=== PATIENT | female | born 1960 | race Caucasian/White ===

== ENCOUNTER → 2016-02-24 | Outpatient (CLI) | payer BC ==
--- NOTE | 2016-02-25 08:49 | MM ---
Reason for exam: screening (asymptomatic). Last mammogram was performed 1 year and 4 months ago. History: Patient is postmenopausal. Family history of breast cancer in maternal aunt. Physical Findings: A clinical breast exam by your physician is recommended on an annual basis and results should be correlated with mammographic findings. MG Screening Mammo w CAD Bilateral CC and MLO view(s) were taken. Prior study comparison: November 07, 2014, bilateral MG screening mammo w CAD. September 24, 2013, bilateral MG screening mammo w CAD. There are scattered fibroglandular densities. Finding: There is a 6 mm high density mass in the outer quadrant of the right breast. ASSESSMENT: Incomplete: need additional imaging evaluation, BI-RAD 0 RECOMMENDATION: Special view mammogram of the right breast. If lesion persists on supplemental views, image directed ultrasound is recommended. [facility] will attempt to contact patient to return for supplemental views and ultrasound if indicated.
== END ==
LOC: RADMAMWWP 07:20
PROVIDERS: ATTEND Obstetrics & Gynecology
DX: Z12.31 Encounter for screening mammogram for malignant neoplasm of breast (principal); R92.8 Other abnormal and inconclusive findings on diagnostic imaging of breast; E78.4 Other hyperlipidemia; E03.9 Hypothyroidism, unspecified
CPT/HCPCS: 84439; 80061; 84443; G0202

== ENCOUNTER → 2016-03-01 | Outpatient (CLI) | payer BC ==
--- NOTE | 2016-03-02 08:11 | MM ---
Reason for exam: additional evaluation requested from abnormal screening. Last mammogram was performed less than 1 month ago. History: Patient is postmenopausal. Family history of breast cancer in maternal aunt. Physical Findings: Nurse did not find any significant physical abnormalities on exam. MG Work Up Mamm w CAD RT LM, spot compression CC, and spot compression LM view(s) were taken of the right breast. Prior study comparison: February 24, 2016, bilateral MG screening mammo w CAD. November 07, 2014, bilateral MG screening mammo w CAD. Ill defined density upper outer quadrant right breast, 8.5cm from nipple. Ultrasound is recommended. These results were verbally communicated with the patient and result sheet given to the patient on 03/01/16. ASSESSMENT: Incomplete: need additional imaging evaluation, BI-RAD 0 RECOMMENDATION: Ultrasound of the right breast.
--- NOTE | 2016-03-02 08:13 | USB ---
Reason for exam: additional evaluation requested from abnormal screening. History: Patient is postmenopausal. Family history of breast cancer in maternal aunt. US Breast Workup Limited RT Right breast ultrasound demonstrates a 0.20 x 0.18 x 0.35cm lesion too small to characterize at 11 o'clock. Does not correlate with mammographic finding. Breast MRI recommended. These results were verbally communicated with the patient and result sheet given to the patient on 03/01/16. ASSESSMENT: Incomplete: need additional imaging evaluation, BI-RAD 0 RECOMMENDATION: Breast MRI of the right breast.
== END | disposition home or self-care (01) ==
LOC: RADMAMWWP 13:29
PROVIDERS: ATTEND Obstetrics & Gynecology
DX: R92.2 Inconclusive mammogram (principal)
CPT/HCPCS: 76642; G0206

== ENCOUNTER → 2016-03-24 | Day surgery (SDC) | payer BC ==
[~2016-03-24] MED LIST: ALPRAZolam 0.25 MG TAB ONE; BACITRACIN OINT 1 EACH PACKET TOPICAL ONE; LIDOCAINE 1% INJ 10MG/ML (20 ML MDV) ONE; LIDOCAINE 1%-EPI 1:100,000 20 ML VIAL ONE; SODIUM BICARB 4% 5 ML VIAL (0.48 MEQ/ML) ONE
--- NOTE | 2016-03-24 15:43 | MM ---
EXAMINATION TYPE: MG stereo VAD BX RT DATE OF EXAM: 03/24/2016 3:28 PM COMPARISON: Prior mammogram February 24, 2016 and older studies CLINICAL HISTORY: Abnormal mammogram TECHNIQUE: Stereotactic guided core biopsy of right breast with clip placement and follow-up two-view mammogram. FINDINGS: The procedure of stereotactic guided core biopsy was explained to the patient. Benefits, alternatives, and risks were discussed. An informed consent was then obtained. The shortness pathway for biopsy was attempted. Shortness pathway was outer approach. It was difficult to localize with this technique. A cranial approach was then performed. I performed the localization. Overlying skin is cleansed with Betadine. Lidocaine with bicarbonate is used as anesthetic into the skin. Lidocaine with epinephrine is used as anesthetic into the deeper tissue. A vacuum assisted biopsy gun was used to obtain multiple core samples. The patient tolerated the procedure well without any immediate complication. The patient was kept in the radiology department for short stay after the procedure and then discharged home in stable condition. Specimen mammogram not performed due to no calcifications in targeted area. Post biopsy mammogram shows the clip to appear in satisfactory position relative to the targeted area of concern on the preprocedure images. IMPRESSION: SUCCESSFUL, UNCOMPLICATED STEREOTACTIC GUIDED CORE BIOPSY OF AREA OF CONCERN IN THE RIGHT BREAST, FULL PATHOLOGY RESULTS TO FOLLOW. Low to intermediate index of suspicion noted at time of procedure. Pathology Results: Benign BREAST, RIGHT, CORE BIOPSY: BENIGN BREAST TISSUE WITH FOCAL FIBROSIS AND PROMINENT ADIPOSE TISSUE. SEE NOTE. Recommendation Follow up mammogram of the right breast in 6 months. BANG
== END ==
LOC: RADMAMWWP 13:17
PROVIDERS: ATTEND Surgery
DX: N60.31 Fibrosclerosis of right breast (principal); R92.8 Other abnormal and inconclusive findings on diagnostic imaging of breast; N64.9 Disorder of breast, unspecified
CPT/HCPCS: 88305; 19081; A4648; J2001

== ENCOUNTER → 2016-09-22 | Outpatient (CLI) | payer BC ==
--- NOTE | 2016-09-22 08:52 | MM ---
Reason for exam: follow-up at short interval from prior study. Last mammogram was performed 7 months ago. History: Patient is postmenopausal. Family history of breast cancer in maternal aunt. Benign MG stereo VAD BX RT of the right breast, March 24, 2016. Took hormonal contraceptives beginning at age 19. Physical Findings: Nurse did not find any significant physical abnormalities on exam. MG 3D Diag Mammo W/Cad RT CC and MLO view(s) were taken of the right breast. Prior study comparison: March 01, 2016, right breast MG work up mamm w CAD RT. There are scattered fibroglandular densities. No significant new findings when compared with previous films. These results were verbally communicated with the patient and result sheet given to the patient on 09/22/16. ASSESSMENT: Benign, BI-RAD 2 RECOMMENDATION: Return to routine screening mammogram schedule for both breasts. Back on schedule for February 2017.
== END | disposition home or self-care (01) ==
LOC: RADMAMWWP 08:07
PROVIDERS: ATTEND Surgery
DX: R92.8 Other abnormal and inconclusive findings on diagnostic imaging of breast (principal)
CPT/HCPCS: G0206; G0279

== ENCOUNTER → 2017-05-01 | Outpatient (CLI) | payer BC ==
[2017-05-01 10:43] LABS: Cholesterol 199 mg/dL (<200); HDL Cholesterol 37 mg/dL (40-60); LDL Cholesterol,Calculated 107 mg/dL (0-99); Triglycerides 275 mg/dL (<150)
--- NOTE | 2017-05-01 13:47 | BD ---
EXAMINATION TYPE: MG DEXA axial skeleton. DATE OF EXAM: 05/01/2017 COMPARISON: 2014 CLINICAL HISTORY: osteopenia. Postmenopausal female. Height: 5'4 3/4 Weight: 187 FRAX RISK QUESTIONS: Alcohol (3 or more units per day): no Family History (Parent hip fracture): no Glucocorticoids (More than 3mos): no (Ex: prednisone, prednisolone, methylprednisolone, dexamethasone, and hydrocortisone). History of Fracture in Adulthood: no Secondary Osteoporosis: 1. Type 1 Diabetes: no 2. Hyperthyroidism: no 3. Menopause before 45: yes 4. Malnutrition: no 5. Chronic liver disease: no Rheumatoid Arthritis: no Current Tobacco Use: no RISK FACTORS HISTORY OF: Family History of Osteoporosis: y Postmenopausal woman: MEDICATIONS: Additional Medications: Additional History: EXAM MEASUREMENTS: Bone mineral densitometry was performed using the [employer] System. Bone mineral density as measured about the Lumbar spine is: ----- L1-L4(G/cm2): 1.097 T Score Values are as follows: ----- L2: -1.3 ----- L3: -0.3 ----- L4: -0.5 ----- L1-L4: -0.7 Bone mineral density has: Decreased -5.7% since study of: 11/07/2014 Bone mineral density about the R hip (g/cm2): 0.896 Bone mineral density about the L hip (g/cm2): 0.904 T Score values are as follows: -----R Neck: -1.0 -----L Neck: -1.0 -----R Total: -0.3 -----L Total: -0.5 Bone mineral density has: Decreased -6.7% since study of: 11/07/2014 IMPRESSION: Normal (Values between +1 and -1 indicate normal bone mass). Bilateral hips approach values for osteo penia. Consider repeating this study in 5 years or sooner if there is some new clinical indication. NOTE: T-SCORE=SD OF THE YOUNG ADULT MEAN.
--- NOTE | 2017-05-03 12:45 | MM ---
Reason for exam: screening (asymptomatic). Last mammogram was performed 7 months ago. History: Patient is postmenopausal. Family history of breast cancer in maternal aunt. Benign MG stereo VAD BX RT of the right breast, March 24, 2016. Took hormonal contraceptives beginning at age 19. Physical Findings: A clinical breast exam by your physician is recommended on an annual basis and results should be correlated with mammographic findings. MG 3D Screening Mammo W/Cad Bilateral CC and MLO view(s) were taken. Prior study comparison: September 22, 2016, right breast MG 3d diag mammo w/cad RT. March 01, 2016, right breast MG work up mamm w CAD RT. There are scattered fibroglandular densities. Previous mammotome biopsy in the right breast. There is no discrete abnormality. ASSESSMENT: Benign, BI-RAD 2 RECOMMENDATION: Routine screening mammogram of both breasts in 1 year.
== END | disposition home or self-care (01) ==
LOC: RADBDWWP 09:43
PROVIDERS: ATTEND Obstetrics & Gynecology
DX: Z12.31 Encounter for screening mammogram for malignant neoplasm of breast (principal); M85.852 Other specified disorders of bone density and structure, left thigh; M85.851 Other specified disorders of bone density and structure, right thigh
CPT/HCPCS: 77063; 77067; 77080; 80061

== ENCOUNTER → 2018-06-14 | Outpatient (CLI) | payer BC ==
[2018-06-14 07:43] LABS: Cholesterol 172 mg/dL (<200); HDL Cholesterol 26 mg/dL (40-60); LDL Cholesterol,Calculated 78 mg/dL (0-99); Triglycerides 340 mg/dL (<150)
--- NOTE | 2018-06-15 12:30 | MM ---
Reason for exam: screening (asymptomatic). Last mammogram was performed 1 year and 1 month ago. History: Patient is postmenopausal. Family history of breast cancer in maternal aunt and breast cancer in maternal cousin. Benign MG stereo VAD BX RT of the right breast, March 24, 2016. Took hormonal contraceptives beginning at age 19. Physical Findings: A clinical breast exam by your physician is recommended on an annual basis and results should be correlated with mammographic findings. MG 3D Screening Mammo W/Cad Bilateral CC and MLO view(s) were taken. Prior study comparison: May 01, 2017, bilateral MG 3d screening mammo w/cad. September 22, 2016, right breast MG 3d diag mammo w/cad RT. The breast tissue is heterogeneously dense. This may lower the sensitivity of mammography. Previous mammotome biopsy in the right breast. No significant changes when compared with prior studies. ASSESSMENT: Benign, BI-RAD 2 RECOMMENDATION: Routine screening mammogram of both breasts in 1 year.
== END ==
LOC: RADMAMWWP 06:34
PROVIDERS: ATTEND Obstetrics & Gynecology
DX: Z12.31 Encounter for screening mammogram for malignant neoplasm of breast (principal); Z13.220 Encounter for screening for lipoid disorders
CPT/HCPCS: 77063; 77067; 80061

== ENCOUNTER 2019-07-17 20:43 | Emergency (ER) | payer OTHER, BC ==
[2019-07-17] MEDS ORDERED: ONDANSETRON 4 MG/2 ML VIAL IVP STA (20:58)
[2019-07-17 20:59] VITALS: BP 151/88; TEMP 97.4
[2019-07-17 21:00] VITALS: PULSE 77; RESP 18
[2019-07-17] MEDS ORDERED: MORPHINE SULFATE 4 MG/ML SYRINGE IVP STA ×2 (21:00→22:25)
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
[2019-07-17 21:36] LABS: ALT 61 U/L (4-34); AST 87 U/L (14-36); African American GFR (CKD) 89 (>60 ml/min/1.73 sqM); Albumin 4.3 g/dL (3.5-5.0); Alcohol <10 mg/dL; Alkaline Phosphatase 139 U/L (38-126); Anion Gap 9 mmol/L; Blood Urea Nitrogen 19 mg/dL (7-17); Calcium 8.9 mg/dL (8.4-10.2); Carbon Dioxide 20 mmol/L (22-30); Chloride 109 mmol/L (98-107); Creatine Kinase 148 U/L (30-135); Glucose 111 mg/dL (74-99); Non-African American GFR(CKD) 77 (>60 ml/min/1.73 sqM); Potassium 4.3 mmol/L (3.5-5.1); Sodium 138 mmol/L (137-145); Total Bilirubin 0.4 mg/dL (0.2-1.3); Total Protein 7.1 g/dL (6.3-8.2)
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
[2019-07-17 21:44] LABS: INR 1.4 (<1.2); Partial Thromboplastin Time 23.5 sec (22.0-30.0); Prothrombin Time 14.2 sec (9.0-12.0)
[2019-07-17 22:02] LABS: Basophils % (A) 0 %; Eosinophils # (A) 0.2 k/uL (0-0.7); Eosinophils % (A) 2 %; HCT 46.9 % (34.0-46.0); HGB 15.1 gm/dL (11.4-16.0); Lymphocytes # (A) 2.2 k/uL (1.0-4.8); Lymphocytes % (A) 23 %; MCH 30.2 pg (25.0-35.0); MCHC 32.3 g/dL (31.0-37.0); MCV 93.4 fL (80.0-100.0); Mean Platelet Volume 8.3; Monocytes # (A) 0.5 k/uL (0-1.0); Monocytes % (A) 5 %; Neutrophils # (A) 6.4 k/uL (1.3-7.7); Neutrophils % (A) 68 %; Platelet Count 202 k/uL (150-450); RBC 5.02 m/uL (3.80-5.40); RDW 13.2 % (11.5-15.5); WBC 9.5 k/uL (3.8-10.6)
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
[2019-07-17 23:12] LABS: Appearance,Urine Clear (Clear); Bilirubin,Urine Negative (Negative); Blood,Urine Moderate (Negative); Color,Urine Yellow; Glucose,Urine (UA) Negative (Negative); Ketones,Urine Trace (Negative); Leukocyte Esterase,Urine Negative (Negative); Mucus,Urine Occasional /hpf; Nitrite,Urine Negative (Negative); PH, Urine 5.5 (5.0-8.0); Protein,Urine Trace (Negative); RBC,Urine 55 /hpf (0-5); Squamous Epithelial Cell,Urine 1 /hpf (0-4); Urobilinogen,Urine <2.0 mg/dL (<2.0); WBC,Urine 1 /hpf (0-5)
[2019-07-17 23:20] LABS: Specific Gravity,Urine >1.050 (1.001-1.035)
[2019-07-17 23:22] LABS: Amphetamine Screen,Urine Not Detected (NotDetected); Barbiturate Screen,Urine Not Detected (NotDetected); Benzodiazepines Screen,Urine Not Detected (NotDetected); Cocaine Screen,Urine Not Detected (NotDetected); Methadone Screen, Urine Not Detected (NotDetected); Opiate Screen,Urine Detected (NotDetected); Oxycodone Screen, Urine Not Detected (NotDetected); Phencyclidine Screen,Urine Not Detected (NotDetected); Tricyclic Antidepressant,Urine Not Detected (NotDetected); Urn Cannabinoid Scrn Not Detected (NotDetected)
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
[2019-07-18] MEDS ORDERED: HYDROmorphone 1 MG/ML 1 ML SYRINGE IVP STA (00:54)
== END 2019-07-18 00:55 | disposition other institution (70) ==
LOC: EC 20:43
DX: S82.832A Other fracture of upper and lower end of left fibula, initial encounter for closed fracture (principal); S82.102A Unspecified fracture of upper end of left tibia, initial encounter for closed fracture; R31.29 Other microscopic hematuria; R74.0 Nonspecific elevation of levels of transaminase and lactic acid dehydrogenase [LDH]; R79.1 Abnormal coagulation profile; M47.892 Other spondylosis, cervical region; J98.11 Atelectasis; Z53.29 Procedure and treatment not carried out because of patient's decision for other reasons; F17.200 Nicotine dependence, unspecified, uncomplicated; V23.5XXA Motorcycle passenger injured in collision with car, pick-up truck or van in traffic accident, initial encounter; Y92.89 Other specified places as the place of occurrence of the external cause
CPT/HCPCS: 36415; 93005; 86900; 86901; 80053; 82550; 84484; 85025; 85610; 85730; 86850; 81001; 80306; 80320; 72170; 73552; 73590; 73562; 71045; 72125; 70450; 71260; 74177; 99285; 96374; 96375 ×2; 96376; J2270; J2405; J1170; Q9967

== ENCOUNTER → 2019-10-07 | Outpatient (CLI) | payer OTHER ==
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
== END | disposition home or self-care (01) ==
LOC: RADXRMAIN 10:40
PROVIDERS: ATTEND Orthopaedic Surgery Orthopaedic Trauma
DX: M84.462A Pathological fracture, left tibia, initial encounter for fracture (principal); M84.464A Pathological fracture, left fibula, initial encounter for fracture; Z98.890 Other specified postprocedural states

== ENCOUNTER → 2019-10-24 | Outpatient (CLI) | payer BC ==
--- NOTE | 2019-10-25 11:05 | MM ---
Reason for exam: screening (asymptomatic). Last mammogram was performed 1 year and 4 months ago. History: Patient is postmenopausal. Family history of breast cancer in maternal aunt and breast cancer in maternal cousin. Benign MG stereo VAD BX RT of the right breast, March 24, 2016. Took hormonal contraceptives beginning at age 19. Physical Findings: A clinical breast exam by your physician is recommended on an annual basis and results should be correlated with mammographic findings. MG 3D Screening Mammo W/Cad Bilateral CC and MLO view(s) were taken. Prior study comparison: June 14, 2018, bilateral MG 3d screening mammo w/cad. May 01, 2017, bilateral MG 3d screening mammo w/cad. There are scattered fibroglandular densities. No significant changes when compared with prior studies. ASSESSMENT: Benign, BI-RAD 2 RECOMMENDATION: Routine screening mammogram of both breasts in 1 year.
== END | disposition home or self-care (01) ==
LOC: RADMAMWWP 16:36
PROVIDERS: ATTEND Obstetrics & Gynecology
DX: Z12.31 Encounter for screening mammogram for malignant neoplasm of breast (principal); Z80.3 Family history of malignant neoplasm of breast
CPT/HCPCS: 77063; 77067

== ENCOUNTER → 2021-02-02 | Outpatient (CLI) | payer BC ==
--- NOTE | 2021-02-03 14:07 | MM ---
Reason for exam: screening (asymptomatic). Last mammogram was performed 1 year and 3 months ago. History: Patient is postmenopausal. Family history of breast cancer in maternal aunt and breast cancer in maternal cousin. Benign MG stereo VAD BX RT of the right breast, March 24, 2016. Took hormonal contraceptives beginning at age 19. Physical Findings: A clinical breast exam by your physician is recommended on an annual basis and results should be correlated with mammographic findings. MG 3D Screening Mammo W/Cad Bilateral CC and MLO view(s) were taken. Prior study comparison: October 24, 2019, bilateral MG 3d screening mammo w/cad. June 14, 2018, bilateral MG 3d screening mammo w/cad. There are scattered fibroglandular densities. Finding #1: There is a 8 mm equal density (isodense) mass in the right breast. Finding #2: There are indeterminate calcifications in the subareolar position of the right breast. Previous mammotome biopsy in the right breast. Asymmetric breast tissue in the right breast, stable. ASSESSMENT: Incomplete: need additional imaging evaluation, BI-RAD 0 RECOMMENDATION: Special view mammogram of the right breast. If lesion persists on supplemental views, image directed ultrasound is recommended. [facility] will attempt to contact patient to return for supplemental views and ultrasound if indicated.
== END | disposition home or self-care (01) ==
LOC: RADMAMWWP 07:51
PROVIDERS: ATTEND Obstetrics & Gynecology
DX: Z12.31 Encounter for screening mammogram for malignant neoplasm of breast (principal); Z80.3 Family history of malignant neoplasm of breast; Z78.0 Asymptomatic menopausal state
CPT/HCPCS: 77063; 77067

== ENCOUNTER → 2021-02-04 | Outpatient (CLI) | payer BC ==
--- NOTE | 2021-02-08 09:59 | MM ---
Reason for exam: additional evaluation requested from abnormal screening. Last mammogram was performed less than 1 month ago. History: Patient is postmenopausal. Family history of breast cancer in maternal aunt and breast cancer in maternal cousin. Benign MG stereo VAD BX RT of the right breast, March 24, 2016. Took hormonal contraceptives beginning at age 19. Physical Findings: Nurse did not find any significant physical abnormalities on exam. MG 3D Work Up W/Cad RT CC with magnification, LM with magnification, spot compression MLO, and LM view(s) were taken of the right breast. Prior study comparison: February 02, 2021, bilateral MG 3d screening mammo w/cad. October 24, 2019, bilateral MG 3d screening mammo w/cad. There are scattered fibroglandular densities. Anterior calcifications present back to 2016 appear linear on lateral, possible vascular or secretory. The posterior density disperses. No significant new findings when compared with previous films. These results were verbally communicated with the patient and result sheet given to the patient on 02/04/21. ASSESSMENT: Benign, BI-RAD 2 RECOMMENDATION: Return to routine screening mammogram schedule for both breasts.
== END | disposition home or self-care (01) ==
LOC: RADMAMWWP 07:48
PROVIDERS: ATTEND Obstetrics & Gynecology
DX: R92.1 Mammographic calcification found on diagnostic imaging of breast (principal); Z80.3 Family history of malignant neoplasm of breast; Z78.0 Asymptomatic menopausal state
CPT/HCPCS: 77061; 77065

== ENCOUNTER → 2022-02-03 | Outpatient (CLI) | payer BC ==
--- NOTE | 2022-02-03 19:22 | MM ---
Reason for Exam: Screening (asymptomatic). Last screening mammogram was performed 12 month(s) ago. Patient History: Menarche at age 11. First Full-Term at age 26. Hysterectomy at age 39. Postmenopausal. Hormonal Contraceptives, from age 19 until age 34. 03/24/2016, Benign Core Biopsy on the right side. Maternal cousin had breast cancer. Maternal aunt had breast cancer. Risk Values: Ginna 5 year model risk: 2.0%. NCI Lifetime model risk: 9.0%. Prior Study Comparison: 10/24/2019 Bilateral Screening Mammogram, [facility]. 02/02/2021 Bilateral Screening Mammogram, [facility]. 02/04/2021 Right Diagnostic Mammogram, [facility]. Tissue Density: There are scattered fibroglandular densities. Findings: Analyzed By CAD. Microclip upper outer quadrant right breast from prior biopsy. Small nodular asymmetric density in the left cc view in the middle depth is more defined and larger. Further evaluation recommended. Otherwise, no significant change. Overall Assessment: Incomplete: need additional imaging evaluation, BI-RAD 0 Management: Special View Mammogram of the left breast. Including spot 3-D CC, 3-D CC rolled lateral, and 3-D lateral views. Targeted left breast ultrasound if any persisting abnormality. [facility] will attempt to contact patient to return for supplemental views and ultrasound if indicated. Electronically signed and approved by: Garret Edwards M.D. Radiologist
== END | disposition home or self-care (01) ==
LOC: RADMAMWWP 06:46
PROVIDERS: ATTEND Obstetrics & Gynecology
DX: Z12.31 Encounter for screening mammogram for malignant neoplasm of breast (principal); Z78.0 Asymptomatic menopausal state; Z80.3 Family history of malignant neoplasm of breast
CPT/HCPCS: 77063; 77067

== ENCOUNTER → 2022-02-09 | Outpatient (CLI) | payer BC ==
--- NOTE | 2022-02-09 07:20 | MM ---
Reason for Exam: Additional evaluation requested from abnormal screening. Last screening mammogram was performed less than 1 month ago. Patient History: Menarche at age 11. First Full-Term at age 26. Hysterectomy at age 39. Postmenopausal. Patient has history of breast feeding. Hormonal Contraceptives, from age 19 until age 34. 03/24/2016, Benign Core Biopsy on the right side. Maternal cousin had breast cancer. Maternal aunt had breast cancer. Risk Values: Ginna 5 year model risk: 2.0%. NCI Lifetime model risk: 9.0%. Prior Study Comparison: 02/02/2021 Bilateral Screening Mammogram, [facility]. 02/04/2021 Right Diagnostic Mammogram, [facility]. 02/03/2022 Bilateral MG 3D screening mammo w/cad, [facility]. Tissue Density: Left: The breast tissue is almost entirely fat. Findings: Analyzed By CAD. Redemonstration of focal asymmetry in the left breast at middle depth approximately 7-8 cm from the nipple measuring up to 4 mm around the 12:00 position posterior nipple line. Overall Assessment: Incomplete: need additional imaging evaluation, BI-RAD 0 Management: Diagnostic Breast Ultrasound of the left breast. A clinical breast exam by your physician is recommended on an annual basis and results should be correlated with mammographic findings. This exam should not preclude additional follow-up of suspicious palpable abnormalities. Results were given to the patient verbally at the time of exam. Electronically signed and approved by: Herberth Jeffery DO
--- NOTE | 2022-02-09 07:42 | USB ---
Reason for Exam: Additional evaluation requested from abnormal screening. Patient History: Menarche at age 11. First Full-Term at age 26. Hysterectomy at age 39. Postmenopausal. Patient has history of breast feeding. Hormonal Contraceptives, from age 19 until age 34. 03/24/2016, Benign Core Biopsy on the right side. Maternal cousin had breast cancer. Maternal aunt had breast cancer. Risk Values: Ginna 5 year model risk: 2.0%. NCI Lifetime model risk: 9.0%. Technique: Method: Targeted. Prior Study Comparison: 02/02/2021 Bilateral Screening Mammogram, [facility]. 02/04/2021 Right Diagnostic Mammogram, [facility]. 02/03/2022 Bilateral MG 3D screening mammo w/cad, [facility]. Findings: The upper section of the breast of the left breast and the retroareolar of the left breast were scanned. Upper half of the breast and retroareolar region were examined grayscale imaging. Small 3 mm hypodense lesion at 7 cm from nipple correlates with mammographic finding. This is small and may represent complicated cyst versus other etiologies.Upper half of the breast and retroareolar region were examined grayscale imaging. Small 3 mm hypodense lesion at 7 cm from nipple correlates with mammographic finding. This is small and may represent complicated cyst versus other etiologies with underlying malignancy not entirely excluded.Upper half of the breast and retroareolar region were examined grayscale imaging. Small 3 mm hypodense lesion at 7 cm from nipple correlates with mammographic finding. This is small and difficult to completely characterize, this may represent complicated cyst versus other etiologies with underlying malignancy not entirely excluded. Overall Assessment: Probably benign, BI-RAD 3 Management: Diagnostic Breast Ultrasound of the left breast in 6 months. A clinical breast exam by your physician is recommended on an annual basis and results should be correlated with mammographic findings. This exam should not preclude additional follow-up of suspicious palpable abnormalities. Results were given to the patient verbally at the time of exam. Electronically signed and approved by: Herberth Jeffery DO
== END | disposition home or self-care (01) ==
LOC: RADMAMWWP 06:53
PROVIDERS: ATTEND Obstetrics & Gynecology
DX: R92.8 Other abnormal and inconclusive findings on diagnostic imaging of breast (principal); Z78.0 Asymptomatic menopausal state; Z80.3 Family history of malignant neoplasm of breast
CPT/HCPCS: 77061; 77065

== ENCOUNTER → 2022-08-10 | Outpatient (CLI) | payer BC ==
--- NOTE | 2022-08-10 07:44 | USB ---
Reason for Exam: Follow-up at short interval from prior study. Patient History: Menarche at age 11. First Full-Term at age 26. Hysterectomy at age 39. Postmenopausal. Patient has history of breast feeding. Hormonal Contraceptives, from age 19 until age 34. 03/24/2016, Benign Core Biopsy on the right side. Maternal cousin had breast cancer. Maternal aunt had breast cancer. Risk Values: Ginna 5 year model risk: 2.1%. NCI Lifetime model risk: 8.7%. Technique: Method: Targeted. Prior Study Comparison: 02/04/2021 Right Diagnostic Mammogram, [facility]. 02/03/2022 Bilateral MG 3D screening mammo w/cad, [facility]. 02/09/2022 Left US breast workup limited LT, [facility]. 02/09/2022 Left MG 3D work up w/cad LT, [facility]. Findings: The upper section of the breast of the left breast, the axilla of the left breast and the retroareolar of the left breast were scanned. Imaged: Ultrasound imaging of: Area of concern, retroareolar region and axilla. Stable 3 mm hypoechoic focus within the left breast in the left breast 12:00 7 cm from nipple. No evidence for organizing fluid collection or mass. Overall Assessment: Probably benign, BI-RAD 3 Management: Diagnostic Breast Ultrasound of both breasts in 6 months. Short-term follow-up in 6 months to ensure one-year stability. A clinical breast exam by your physician is recommended on an annual basis and results should be correlated with mammographic findings. This exam should not preclude additional follow-up of suspicious palpable abnormalities. Results were given to the patient verbally at the time of exam. Electronically signed and approved by: Herberth Jeffery DO
== END | disposition home or self-care (01) ==
LOC: RADUSWWP 07:02
PROVIDERS: ATTEND Obstetrics & Gynecology
DX: R92.8 Other abnormal and inconclusive findings on diagnostic imaging of breast (principal); Z78.0 Asymptomatic menopausal state; Z80.3 Family history of malignant neoplasm of breast

== ENCOUNTER → 2023-02-14 | Outpatient (CLI) | payer BC ==
--- NOTE | 2023-02-14 09:16 | USB ---
Reason for Exam: Follow-up at short interval from prior study. Patient History: Menarche at age 11. First Full-Term at age 26. Hysterectomy at age 39. Postmenopausal. Patient has history of breast feeding. Hormonal Contraceptives, from age 19 until age 34. 03/24/2016, Benign Core Biopsy on the right side. Maternal cousin had breast cancer. Maternal aunt had breast cancer. Risk Values: Ginna 5 year model risk: 2.1%. NCI Lifetime model risk: 8.7%. Technique: Method: Targeted. Prior Study Comparison: 02/04/2021 Right Diagnostic Mammogram, [facility]. 02/03/2022 Bilateral MG 3D screening mammo w/cad, [facility]. 02/09/2022 Left MG 3D work up w/cad , [facility]. Findings: The upper outer quadrant of the left breast, the axilla of the left breast and the retroareolar of the left breast were scanned. There is a 0.3 x 0.2 x 0.2 cm hypoechoic area deep within the breast 7 cm from the nipple 12:00 position. This correlates with prior examination without interval change.. Overall Assessment: Benign, BI-RAD 2 Management: Screening Mammogram of both breasts in 1 year. A clinical breast exam by your physician is recommended on an annual basis and results should be correlated with mammographic findings. This exam should not preclude additional follow-up of suspicious palpable abnormalities. Results were given to the patient verbally at the time of exam. Electronically signed and approved by: Pepito Diaz D.O. Radiologis
--- NOTE | 2023-02-14 09:17 | MM ---
Reason for Exam: Additional evaluation requested from prior study. Last mammogram was performed 1 year(s) and 1 month(s) ago. Patient History: Menarche at age 11. First Full-Term at age 26. Hysterectomy at age 39. Postmenopausal. Patient has history of breast feeding. Hormonal Contraceptives, from age 19 until age 34. 03/24/2016, Benign Core Biopsy on the right side. Maternal cousin had breast cancer. Maternal aunt had breast cancer. Risk Values: Ginna 5 year model risk: 2.1%. NCI Lifetime model risk: 8.7%. Prior Study Comparison: 09/22/2016 Right Diagnostic Mammogram, [facility]. 05/01/2017 Bilateral Screening Mammogram, [facility]. 06/14/2018 Bilateral Screening Mammogram, [facility]. 10/24/2019 Bilateral Screening Mammogram, [facility]. 02/02/2021 Bilateral Screening Mammogram, [facility]. 02/04/2021 Right Diagnostic Mammogram, [facility]. 02/03/2022 Bilateral MG 3D screening mammo w/cad, [facility]. 02/09/2022 Left MG 3D work up w/cad LT, [facility]. Tissue Density: There are scattered fibroglandular densities. Findings: Analyzed By CAD. Pattern appears symmetrical and stable. Previous posterior left breast density is poorly visualized on the current examination. No suspicious interval architectural distortion or mass is evident No suspicious groups of microcalcifications, spiculated or lobular masses, architectural distortion or other secondary signs of malignancy are mammographically apparent. Overall Assessment: Benign, BI-RAD 2 Management: Diagnostic Breast Ultrasound of the left breast. A negative mammogram report should not preclude additional follow up of suspicious palpable abnormalities. Patient should continue monthly self breast exam. A clinical breast exam by your physician is recommended on an annual basis and results should be correlated with mammographic findings. Electronically signed and approved by: Pepito Diaz D.O. Radiologis
--- NOTE | 2023-02-14 16:33 | BD ---
EXAMINATION TYPE: Axial Bone Density DATE OF EXAM: 02/14/2023 CLINICAL HISTORY: 62 years old Female. ICD-10 CODE: N95.1 POST MENOPAUSAL M85.88 OTHER DISORDER OF B ONE DENSITY Height: 63.5 in Weight: 175 lbs FRAX RISK QUESTIONS: History of Fracture in Adulthood: lt tib/fib age 59 RISK FACTORS HISTORY OF: Family History of Osteoporosis: yes grandmother Active: yes Postmenopausal woman: partial hysterectomy age 39 MEDICATIONS: Additional Medications: calcium, vit d EXAM MEASUREMENTS: Bone mineral densitometry was performed using the HandUp PBC System. Bone mineral density as measured about the Lumbar spine is: ----- L1-L4(G/cm2): 1.100 T Score Values are as follows: ----- L1: -0.3 ----- L2: -1.7 ----- L3: -0.2 ----- L4: -0.7 ----- L1-L4: -0.7 Z Score Values are as follows: ----- L1: 0.7 ----- L2: -0.7 ----- L3: 0.8 ----- L4: 0.3 ----- L1-L4: 0.3 Bone mineral density has: Increased 0.3% since study of: 05/01/2017 Bone mineral density about the R hip (g/cm2): 0.885 Bone mineral density about the L hip (g/cm2): 0.930 T Score values are as follows: -----R Neck: -1.5 -----L Neck: -1.4 -----R Total: -1.0 -----L Total: -0.6 Z Score values are as follows: -----R Neck: -0.4 -----L Neck: -0.3 -----R Total: -0.2 -----L Total: 0.1 Bone mineral density has: Decreased -6.3% since study of: 05/01/2017 FRAX%s: The graph provided illustrates a 13.9% chance for a major osteoporotic fx and a 1.3% chance f or the hips probability for fx in 10 years time. IMPRESSION: Osteopenia (T Score between -2.5 and -1). There is slightly increased risk of fracture and the patient may be considered for treatment. Re-Screen 2-5 years. NOTE: T-SCORE=SD OF THE YOUNG ADULT MEAN.
== END | disposition home or self-care (01) ==
LOC: RADBDWWP 07:21
PROVIDERS: ATTEND Obstetrics & Gynecology
DX: M85.89 Other specified disorders of bone density and structure, multiple sites (principal); R92.322 Mammographic fibroglandular density, left breast; N95.1 Menopausal and female climacteric states; Z80.3 Family history of malignant neoplasm of breast
CPT/HCPCS: 77062; 77066; 77080

== ENCOUNTER 2023-05-09 12:19 | Day surgery (SDC) | payer BC ==
[2023-05-05 10:44] VITALS: BMI 29.1
[~2023-05-09 12:19] MED LIST changes: -ALPRAZolam 0.25 MG TAB ONE; -BACITRACIN OINT 1 EACH PACKET TOPICAL ONE; +LIDOCAINE 1% (10MG/ML) FOR IV START INTRADERMA PRN; -LIDOCAINE 1% INJ 10MG/ML (20 ML MDV) ONE; -LIDOCAINE 1%-EPI 1:100,000 20 ML VIAL ONE; -SODIUM BICARB 4% 5 ML VIAL (0.48 MEQ/ML) ONE
[2023-05-09] MEDS: LACTATED RINGERS 1,000 ML IV SCH (12:47)
[2023-05-09] MEDS ORDERED: PROPOFOL 10 MG/ML 20 ML VIAL IV ONE (12:54)
--- NOTE | 2023-05-09 12:55 | P.GSHP ---
History of Present Illness H&P Date: 05/09/23 Chief Complaint: Colon cancer screening 62-year-old female here for colonoscopy. Last colonoscopy 10 to 15 years ago. No bowel complaints. No family history of colon cancer. Past Medical History Past Medical History: No Reported History, Osteoarthritis (OA) Additional Past Medical History / Comment(s): arthritis right knee History of Any Multi-Drug Resistant Organisms: None Reported Past Surgical History: Section, Hysterectomy, Tonsillectomy Additional Past Surgical History / Comment(s): colonoscopy, sacrospinous liga ment suspension (for uterine & vaginal prolapse). Past Anesthesia/Blood Transfusion Reactions: Motion Sickness Additional Past Anesthesia/Blood Transfusion Reaction / Comment(s): states she had difficulty clotting with hysterectomy and . Smoking Status: Never smoker - Past Family History Father Family Medical History: Cancer Additional Family Medical History / Comment(s): prostate cancer Medications and Allergies Home Medications Medication Instructions Recorded Confirmed Type Multivitamins, Thera [Multivitamin 1 tab PO DAILY 05/05/23 05/09/23 History (formulary)] Naproxen Sodium [Aleve] 220 mg PO ONCE 05/05/23 05/09/23 History Allergies Allergy/AdvReac Type Severity Reaction Status Date / Time No Known Allergies Allergy Verified 05/09/23 12:47 Surgical - Exam Vital Signs Temp Pulse Resp BP Pulse Ox 97.6 F 89 16 138/72 96 05/09/23 12:46 05/09/23 12:46 05/09/23 12:46 05/09/23 12:46 05/09/23 12:46 Physical exam: General: Well-developed, well-nourished HEENT: Normocephalic, sclerae nonicteric Abdomen: Nontender, nondistended Extremities: No edema Neuro: Alert and oriented Assessment and Plan (1) Colon cancer screening Narrative/Plan: Will proceed with colonoscopy at this time. Current Visit: Yes Status: Acute Code(s): Z12.11 - ENCOUNTER FOR SCREENING FOR MALIGNANT NEOPLASM OF COLON SNOMED Code(s): 361562936
[2023-05-09 13:05] VITALS: RESP 16; TEMP 97.6
--- NOTE | 2023-05-09 13:07 | P.PCN ---
Date of Procedure: 05/09/23 Procedure(s) Performed: PREOPERATIVE DIAGNOSIS: Colon cancer screening POSTOPERATIVE DIAGNOSIS: Mild diverticulosis PROCEDURE: Colonoscopy ANESTHESIA: MAC SURGEON: Robert Gibbs M.D. SPECIMENS: None ENDOSCOPIC PROCEDURE: The patient was placed on the endoscopy table in the left decubitus position. The Olympus colonoscope was inserted into the anus and passed under direct visualization to the base of the cecum. The appendiceal orifice was visualized. From that point the scope was slowly withdrawn inspecting all surfaces carefully. There were no neoplastic inflammatory or polypoid lesions throughout the cecum, ascending, transverse, descending, sigmoid and rectum. There was mild left-sided diverticulosis noted. Digital rectal examination was normal. The patient was taken to the recovery room in stable condition per anesthesia guidelines. RECOMMENDATIONS: Resume diet. Repeat colonoscopy 10 years.
[2023-05-09 13:41] VITALS: BP 145/82; PULSE 84
== END 2023-05-09 13:39 | disposition home or self-care (01) ==
LOC: ORWHC2ENDO 12:19
PROVIDERS: ATTEND Surgery
DX: Z12.11 Encounter for screening for malignant neoplasm of colon (principal); K57.30 Diverticulosis of large intestine without perforation or abscess without bleeding; M19.90 Unspecified osteoarthritis, unspecified site; Z90.710 Acquired absence of both cervix and uterus; Z79.899 Other long term (current) drug therapy; Z79.1 Long term (current) use of non-steroidal anti-inflammatories (NSAID)
CPT/HCPCS: 45378; J2704

== ENCOUNTER → 2023-06-21 | Outpatient (CLI) | payer BC ==
--- NOTE | 2023-06-21 10:13 | US ---
EXAMINATION TYPE: US carotid duplex BILAT DATE OF EXAM: 06/21/2023 COMPARISON: NONE CLINICAL INDICATION: Female, 62 years old with history of Z13.6 SCREEN CARDIOVASC CONDITION; Patient denies any signs or symptoms at this time TECHNIQUE: Carotid duplex ultrasound examination. Indirect Doppler criteria was utilized. FINDINGS: EXAM MEASUREMENTS: RIGHT: Peak Systolic Velocity (PSV) cm/sec ----- Right CCA: 72 ----- Right ICA: 112 ----- Right ECA: 143 ICA/CCA ratio: 1.6 RIGHT: End Diastole cm/sec ----- Right CCA: 19 ----- Right ICA: 35 ----- Right ECA: 9 LEFT: Peak Systolic Velocity (PSV) cm/sec ----- Left CCA: 96 ----- Left ICA: 124 ----- Left ECA: 122 ICA/CCA ratio: 1.3 LEFT: End Diastole cm/sec ----- Left CCA: 18 ----- Left ICA: 35 ----- Left ECA: 14 VERTEBRALS (direction of flow): Right Vertebral: Antegrade Left Vertebral: Antegrade Rhythm: Arrhythmia TREE EXPERT NOTES: Intimal thickening seen bilaterally, calcified plaque seen at bilateral CCA bulbs, elevated velocities within the right ECA. IMPRESSION: 1. No hemodynamically significant stenosis identified within the bilateral internal carotid arteries. Mild amount of atherosclerotic plaque identified within the bilateral carotid bulbs with right great er than left. 2. Mild stenosis identified within the right ECA. Criteria for Assigning % of Stenosis / Diameter reduction (Estimation based on the indirect measurements of the internal carotid artery velocities (ICA PSV). 1. Normal (no stenosis)=ICA PSV < 125 cm/s: ratio < 2.0: ICA EDV<40 cm/s. 2. Less than 50% stenosis=ICA PSV < 125 cm/s: ratio < 2.0: ICA EDV<40 cm/s. 3. 50 to 69% stenosis=ICA PSV of 125 to 230 cm/s: ration 2.0 ? 4.0: ICA EDV 40-100 cm/s. 4. Greater than 70% stenosis to near occlusion= ICA PSV > 230 cm/s: ratio > 4.0: ICA EDV > 100 cm/s. 5. Near occlusion= ICA PSV velocities may be low or undetectable: variable ratio and ICA EDV. 6. Total occlusion=unable to detect flow.
--- NOTE | 2023-06-21 19:25 | CA ---
Transthoracic Echo Report Name: Skyla Andrews Age: 62 Gender: F : 1960 Exam Date: 06/21/2023 13:07 Exam Location: [facility] Ht (in): 65 Wt (lb): 183 Ordering Physician: Denise Gaines MD Attending/Referring Phys: Denise Gaines MD Replenishment Associate Selene Luna, [facility] Procedure CPT: Indications: Z13.6 SCREENING FOR CARDIOVASCULAR CONDITION Cardiac Hx: Technical Quality: Good Contrast 1: Total Dose (mL): Contrast 2: Total Dose (mL): MEASUREMENTS (Male / Female) Normal Values 2D ECHO LV Diastolic Diameter PLAX 4.2 cm 4.2 - 5.9 / 3.9 - 5.3 cm LV Systolic Diameter PLAX 2.9 cm IVS Diastolic Thickness 0.9 cm 0.6 - 1.0 / 0.6 - 0.9 cm LVPW Diastolic Thickness 1.2 cm 0.6 - 1.0 / 0.6 - 0.9 cm LV Relative Wall Thickness 0.5 RV Internal Dim ED PLAX 2.4 cm LA Systolic Diameter LX 4.2 cm 3.0 - 4.0 / 2.7 - 3.8 cm LV Diastolic Volume MOD BP 66.4 cm??? 67 - 155 / 56 - 104 cm??? LV Systolic Volume MOD BP 29.1 cm??? 22 - 58 / 19 - 49 cm??? LV Ejection Fraction MOD BP 56.2 % >= 55 % LV Diastolic Volume MOD 4C 67.5 cm??? LV Systolic Volume MOD 4C 30.2 cm??? LV Ejection Fraction MOD 4C 55.3 % LV Diastolic Length 4C 7.6 cm LV Systolic Length 4C 6.3 cm LV Diastolic Volume MOD 2C 61.1 cm??? LV Systolic Volume MOD 2C 24.0 cm??? LV Ejection Fraction MOD 2C 60.7 % LV Diastolic Length 2C 7.1 cm LV Systolic Length 2C 6.1 cm M-MODE Aortic Root Diameter MM 2.8 cm LA Systolic Diameter MM 4.0 cm LA Ao Ratio MM 1.4 AV Cusp Separation MM 2.0 cm DOPPLER AV Peak Velocity 146.5 cm/s AV Peak Gradient 8.6 mmHg Mitral E Point Velocity 67.0 cm/s Mitral A Point Velocity 86.9 cm/s Mitral E to A Ratio 0.8 MV Deceleration Time 350.4 ms MV E' Velocity 6.9 cm/s Mitral E to MV E' Ratio 9.7 TR Peak Velocity 217.5 cm/s TR Peak Gradient 18.9 mmHg Right Ventricular Systolic Press 24.0 mmHg FINDINGS Left Ventricle Left ventricular ejection fraction is estimated at 55-60 %. Mildly increased posterior wall thickness. Normal left ventricular systolic function with no obvious regional wall motion abnormalities. Left ventricular cavity size normal. Right Ventricle Normal right ventricular size and function. Right ventricular systolic pressure within normal limits. Right Atrium Normal right atrial size. Left Atrium Mildly increased left atrial diameter. Mitral Valve Structurally normal mitral valve. Mild mitral regurgitation. Aortic Valve Trileaflet aortic valve. No aortic valve stenosis or regurgitation. Tricuspid Valve Structurally normal tricuspid valve. Mild tricuspid regurgitation. Pulmonic Valve Structurally normal pulmonic valve. No pulmonic stenosis. Pericardium No pericardial or pleural effusion. Aorta Normal size aortic root and proximal ascending aorta. CONCLUSIONS Normal LV systolic function Previewed by: Dr. Giovanni Yepez MD (Electronically Signed) Final Date: 21 Jun 2023 19:24
== END | disposition home or self-care (01) ==
LOC: RADUSWWP 09:29
PROVIDERS: ATTEND Internal Medicine
DX: Z13.6 Encounter for screening for cardiovascular disorders (principal); I65.23 Occlusion and stenosis of bilateral carotid arteries
CPT/HCPCS: 93306; 93880

== ENCOUNTER → 2024-02-12 | Outpatient (CLI) | payer BC ==
[2024-02-12 15:30] LABS: Basophils # (A) 0.03 X 10*3/uL (0.00-0.10); Basophils % (A) 0.5 %; Eosinophils # (A) 0.13 X 10*3/uL (0.04-0.35); Eosinophils % (A) 2.4 %; HCT 45.4 % (37.2-46.3); HGB 15.4 g/dL (12.0-15.0); Lymphocytes # (A) 1.77 X 10*3/uL (0.90-5.00); Lymphocytes % (A) 32.4 %; MCH 31.6 pg (27.0-32.0); MCHC 33.9 g/dL (32.0-37.0); MCV 93.2 FL (80.0-97.0); Mean Platelet Volume 12.2 FL (9.5-12.2); Monocytes # (A) 0.42 X 10*3/uL (0.20-1.00); Monocytes % (A) 7.7 %; NRBC Per 100 WBC 0 X 10*3/uL (0.00-0.01); Neutrophils % (A) 56.8 %; Platelet Count 345 X 10*3/uL (140-440); RBC 4.87 X 10*6/uL (4.10-5.20); RDW 12.7 % (11.5-14.5); WBC 5.46 X 10*3/uL (4.50-10.00)
[2024-02-12 15:31] LABS: BUN/Creat Ratio 16.67 Ratio (12.00-20.00); Calcium 9.6 mg/dL (8.7-10.3); Carbon Dioxide 22.2 mmol/L (21.6-31.8); Chloride 102 mmol/L (96-109); Glucose 112 mg/dL (70-110); Potassium 4.3 mmol/L (3.5-5.5); Sodium 135 mmol/L (135-145)
[2024-02-12 15:49] LABS: Appearance,Urine Clear (Clear); Bilirubin,Urine Negative (Negative); Blood,Urine Negative (Negative); Color,Urine Yellow (Yellow); Ketones,Urine Negative (Negative); Nitrite,Urine Negative (Negative); PH, Urine 5.5; Specific Gravity,Urine 1.019 (1.001-1.030); Urobilinogen,Urine 0.2 E.U./DL
[2024-02-12 16:11] LABS: Bacteria,Urine None Seen (None Seen)
== END | disposition home or self-care (01) ==
LOC: LABPAT 07:50
PROVIDERS: ATTEND Urology
DX: N39.3 Stress incontinence (female) (male) (principal)
CPT/HCPCS: 80048; 81001; 85025; 87086

== ENCOUNTER → 2024-02-16 | Outpatient (CLI) | payer BC ==
--- NOTE | 2024-02-16 18:11 | MM ---
Reason for Exam: Screening (asymptomatic). Last screening mammogram was performed 12 month(s) ago. Patient History: Menarche at age 11. First Full-Term at age 26. Hysterectomy at age 39. Postmenopausal. Patient has history of breast feeding. Hormonal Contraceptives, from age 19 until age 34. 03/24/2016, Benign Core Biopsy on the right side. Maternal cousin had breast cancer. Maternal aunt had breast cancer. Risk Values: Ginna 5 year model risk: 2.1%. NCI Lifetime model risk: 8.4%. Prior Study Comparison: 02/03/2022 Bilateral MG 3D screening mammo w/cad, [facility]. 02/09/2022 Left MG 3D work up w/cad , [facility]. 02/14/2023 Bilateral MG 3D diag mammo w/cad [facility], [facility]. Tissue Density: There are scattered areas of fibroglandular density. Findings: Analyzed By CAD. The pattern is symmetrical. Core marker is within the right breast. There is a new density with some spiculated margins within the mid left breast on the mediolateral view. This appears to be an interval change. Additional workup is recommended. Right breast:No suspicious groups of microcalcifications, spiculated or lobular masses, architectural distortion or other secondary signs of malignancy are mammographically apparent. Overall Assessment: Incomplete: need additional imaging evaluation, BI-RAD 0 Management: Diagnostic Mammogram of the left breast. A negative mammogram report should not preclude additional follow up of suspicious palpable abnormalities. Patient should continue monthly self breast exam. A clinical breast exam by your physician is recommended on an annual basis and results should be correlated with mammographic findings. Note on Ginna scores and lifetime risk: 1. A Ginna score greater than 3% is considered moderate risk. If this is the case, consider specialist referral to assess eligibility for a risk reducing agent. 2. If overall lifetime risk for the development of breast cancer is 20% or higher, the patient may qualify for future screening with alternating mammogram and breast MRI. [facility], , 02/16/2024 6:08 PM. Electronically signed and approved by: Pepito Diaz D.O. Radiologis
== END | disposition home or self-care (01) ==
LOC: RADMAMWWP 07:17
PROVIDERS: ATTEND Obstetrics & Gynecology
DX: Z12.31 Encounter for screening mammogram for malignant neoplasm of breast (principal); Z78.0 Asymptomatic menopausal state; Z80.3 Family history of malignant neoplasm of breast; R92.323 Mammographic fibroglandular density, bilateral breasts; Z98.82 Breast implant status
CPT/HCPCS: 77063; 77067

== ENCOUNTER 2024-02-21 06:22 | Day surgery (SDC) | payer BC ==
--- NOTE | 2024-02-20 12:53 | P.GSHP ---
History of Present Illness H&P Date: 02/20/24 This is a 63-year-old female who came to me if with urinary incontinence. Historically she has stress incontinence. She has had a previous sacral colpopexy for a vaginal prolapse. Evaluation identified a hypermobile urethra with stress incontinence. There is no notable cystocele. Because of her previous surgery she underwent a CMG and cystoscopy identified a normal cystoscopy and a normal CMG. Her leak point pressures were 85 cm. She was given options of treatment. We have chosen a trans-obturator tape. The risks and complications including infection bleeding pain erosion have been discussed. The mesh controversy is been discussed. Second opinions have been offered. - Constitutional Constitutional: Denies chills, Denies fever - EENT Eyes: denies blurred vision, denies pain Ears, nose, mouth and throat: Denies headache, Denies sore throat - Cardiovascular Cardiovascular: Denies chest pain, Denies shortness of breath - Respiratory Respiratory: Denies cough, Denies 7 - Gastrointestinal Gastrointestinal: Denies abdominal pain, Denies diarrhea, Denies nausea, Denies vomiting - Genitourinary (Female) Genitourinary: Denies dysuria, Denies hematuria - Genitourinary (Male) Genitourinary: Denies dysuria, Denies hematuria - Musculoskeletal Musculoskeletal: Denies myalgias - Integumentary Integumentary: Denies pruritus, Denies rash - Neurological Neurological: Denies numbness, Denies weakness - Psychiatric Psychiatric: Denies anxiety, Denies depression - Endocrine Endocrine: Denies fatigue, Denies weight change Past Medical History Past Medical History: Hyperlipidemia, Osteoarthritis (OA) Additional Past Medical History / Comment(s): arthritis right knee History of Any Multi-Drug Resistant Organisms: None Reported Past Surgical History: Bowel Resection, Section, Hysterectomy, Orthopedic Surgery, Tonsillectomy Additional Past Surgical History / Comment(s): colonoscopy, sacrospinous ligament suspension (for uterine & vaginal prolapse). tib/fib fx orif [address], D & C, marker clip in rt breast for biopsy Past Anesthesia/Blood Transfusion Reactions: Motion Sickness Additional Past Anesthesia/Blood Transfusion Reaction / Comment(s): states she had difficulty clotting with hysterectomy and . no blood tx hx Smoking Status: Never smoker - Past Family History Father Family Medical History: Cancer Additional Family Medical History / Comment(s): prostate cancer Medications and Allergies Home Medications Medication Instructions Recorded Confirmed Type Multivitamins, Thera [Multivitamin 1 tab PO DAILY 05/05/23 02/16/24 History (formulary)] Aspirin [Adult Low Dose Aspirin EC] 81 mg PO DAILY 02/16/24 02/16/24 History Cranberry (Unk) 1 tab PO DAILY 02/16/24 02/16/24 History Ezetimibe [Zetia] 10 mg PO HS 02/16/24 02/16/24 History Fish Oil/Dha/Epa [Fish Oil 1,200 1 each PO DAILY 02/16/24 02/16/24 History mg Fish Oil] Rosuvastatin [Crestor] 20 mg PO HS 02/16/24 02/16/24 History Sulfamethoxazole/Trimethoprim 1 each PO BID 02/16/24 02/16/24 History [Sulfamethoxazole/Trimethoprim DS Tablet] Vit C/E/Zn/Coppr/Lutein/Zeaxan 1 tab PO DAILY 02/16/24 02/16/24 History [Preservision Areds 2 Softgel] Vit D3 (Unk) 1 tab PO DAILY 02/16/24 02/16/24 History Allergies Allergy/AdvReac Type Severity Reaction Status Date / Time No Known Allergies Allergy Verified 02/16/24 10:51 Surgical - Exam - General well developed, well nourished, no distress - Eyes normal ocular movement, no icteric - ENT no hearing loss, no congestion - Neck no masses, trachea midline - Respiratory normal respiratory effort, clear to auscultation - Abdomen Abdomen: soft, non tender, no guarding, no rigid, no rebound - Genitourinary Hypermobile urethra with positive Nolan test. Positive stress incontinence with cough and Valsalva - Integumentary no rash, no abnormal pigmentation - Neurologic no disoriented, no combative - Psychiatric oriented to time, oriented to person, oriented to place, speech is normal, memory intact Assessment and Plan Assessment: Impression: Type II stress urinary incontinence. Recommendations: Trans-obturator tape with cystoscopy
[~2024-02-21 06:22] MED LIST changes: +AMPICILLIN 1,000 MG in SODIUM CHLORIDE 0.9% 50 ML IVPB PRN
[2024-02-21] MEDS: IV FLUID CONTINUATION 1,000 ML IV ONE (07:00)
[2024-02-21] MEDS ORDERED: fentaNYL (PF) 50 MCG/ML 2 ML AMP IV PRN (07:00)
[2024-02-21] MEDS: LACTATED RINGERS 1,000 ML IV SCH (07:05)
[2024-02-21] MEDS: ONDANSETRON 4 MG/2 ML VIAL IVP ONE (07:05)
[2024-02-21] MEDS: DEXAMETHASONE SOD PHOSPHATE 4 MG/ML 1 ML VIAL IV ONE (07:05)
[2024-02-21] MEDS: GENTAMICIN 100 MG in SODIUM CHLORIDE 0.9% 100 ML IVPB PRN (07:24)
[2024-02-21] MEDS: VASOPRESSIN 20 UNIT in SODIUM CHLORIDE 0.9% 200 ML IV ONE (07:44)
[2024-02-21] MEDS: GENTAMICIN 80 MG in SODIUM CHLORIDE 0.9% 500 ML 500 ML IRRIGATION ONE (07:44)
[2024-02-21] MEDS: BACITRACIN ZINC 500 UNIT/GM OINT 28.4 GM TUBE TOPICAL ONE (07:57)
[2024-02-21] MEDS ORDERED: ONDANSETRON 4 MG/2 ML VIAL IVP PRN (08:12)
--- NOTE | 2024-02-21 08:26 | P.OP ---
Date of Procedure: 02/21/24 Preoperative Diagnosis: Stress urinary incontinence Postoperative Diagnosis: same Implants: TOT with cystoscopy Anesthesia: RENA Surgeon: Thierry Laughlin Estimated Blood Loss (ml): 25 Pathology: none sent Condition: stable Disposition: PACU Indications for Procedure: The patient is 63 She has morro on pe, and by history. Uds showed lpp of 85 cm h2o SHe comes for a tot. the risks and complictions have been outlined. Description of Procedure: The patient is brought to the or. She is given a general anesthetic. A sterile prep and drape is administered. A vagina specula and cantu are placed. THe anterior vaginal mucosa is elevated off the submucosa with 10 ml of vasopressin. A midline suburethral incision is made. I dissect lateral to the bladder neck bilaterally. I make incisions in the groin at the level of the clitoris. I mass the TOT introducers thru the incision to the vaginal space bilaterally. I remove the catheter and then perform cystoscopy with a 21 fr sheath and foroblique lens. there is no evidence of the introducers in the bladder. I then attach the graft to the introducers and pull the out of the inguinal incisions. The graft lay in the mid urethra nicely. There is no tension. I removed the redundant achieving. I closed the vaginal mucosa with 2-0 Vicryl. I excised redundant graft at the inguinal incisions. A close inguinal incisions with 4-0 Monocryl. A vaginal packing is placed. The patient is awake and re turned recovery room good condition. Blood loss is at most 25 mL. The patient tolerated the procedure well and awakened and returned recovery room
[2024-02-21] MEDS: HYDROmorphone 0.5 MG/0.5 ML SYRINGE IVP PRN (08:48)
[2024-02-21] MEDS: KETOROLAC 15 MG/ML 1 ML VIAL IVP PRN (15:15)
[2024-02-21] MEDS: SULFAMETHOX-TMP 800-160MG 1 EACH TAB PO SCH (21:10)
[2024-02-21] MEDS: EZETIMIBE 10 MG TAB PO SCH (21:11)
[2024-02-22] MEDS: DEXTROSE 5%-0.45% NACL 1,000 ML IV SCH (04:08)
[2024-02-22 08:13] VITALS: BP 136/70; PULSE 67; RESP 17; TEMP 98
== END 2024-02-22 10:43 | disposition home or self-care (01) ==
LOC: OR 06:22 → 4FBP 07:58 → OR 02-22 10:43
PROVIDERS: ATTEND Urology
DX: N39.3 Stress incontinence (female) (male) (principal); E78.5 Hyperlipidemia, unspecified; M19.90 Unspecified osteoarthritis, unspecified site; Z90.710 Acquired absence of both cervix and uterus; Z79.82 Long term (current) use of aspirin; Z79.899 Other long term (current) drug therapy
CPT/HCPCS: 57288; J1580 ×2; J1100; J2405; J1885; J1171

== ENCOUNTER → 2024-02-27 | Outpatient (CLI) | payer BC ==
--- NOTE | 2024-02-27 08:50 | MM ---
Reason for Exam: Clinical finding. Last screening mammogram was performed less than 1 month ago. Patient History: Menarche at age 11. First Full-Term at age 26. Hysterectomy at age 39. Postmenopausal. Patient has history of breast feeding. Hormonal Contraceptives, from age 19 until age 34. 03/24/2016, Benign Core Biopsy on the right side. Maternal cousin had breast cancer. Maternal aunt had breast cancer. Risk Values: Ginna 5 year model risk: 2.1%. NCI Lifetime model risk: 8.4%. Prior Study Comparison: 02/09/2022 Left MG 3D work up w/cad [facility], [facility]. 02/14/2023 Bilateral MG 3D diag mammo w/cad [facility], [facility]. 02/16/2024 Bilateral MG 3D screening mammo w/cad, [facility]. Tissue Density: Left: There are scattered areas of fibroglandular density. Findings: Analyzed By CAD. Persistent new 4 to 5 mm round mass with indistinct margins approximately 7 cm distance from nipple site upper aspect of the left breast on additional views. Overall Assessment: Incomplete: need additional imaging evaluation, BI-RAD 0 Management: Diagnostic Breast Ultrasound of the left breast. Targeted ultrasound evaluation.. Results were given to the patient verbally at the time of exam. Patient should continue monthly self-breast exams. A clinical breast exam by your physician is recommended on an annual basis. This exam should not preclude additional follow-up of suspicious palpable abnormalities. Note on Ginna scores and lifetime risk: 1. A Ginna score greater than 3% is considered moderate risk. If this is the case, consider specialist referral to assess eligibility for a risk reducing agent. 2. If overall lifetime risk for the development of breast cancer is 20% or higher, the patient may qualify for future screening with alternating mammogram and breast MRI. [facility], , 02/27/2024 8:47 AM. Electronically signed and approved by: Brian Peña M.D.
--- NOTE | 2024-02-27 09:31 | USB ---
Reason for Exam: Additional evaluation requested from abnormal screening. Patient History: Menarche at age 11. First Full-Term at age 26. Hysterectomy at age 39. Postmenopausal. Patient has history of breast feeding. Hormonal Contraceptives, from age 19 until age 34. 03/24/2016, Benign Core Biopsy on the right side. Maternal cousin had breast cancer. Maternal aunt had breast cancer. Risk Values: Ginna 5 year model risk: 2.1%. NCI Lifetime model risk: 8.4%. Technique: Method: Targeted. Prior Study Comparison: 02/09/2022 Left MG 3D work up w/cad LT, [facility]. 02/14/2023 Bilateral MG 3D diag mammo w/cad [facility], [facility]. 02/16/2024 Bilateral MG 3D screening mammo w/cad, [facility]. Findings: The upper section of the breast of the left breast, the axilla of the left breast and the retroareolar of the left breast were scanned. Targeted ultrasound shows a persistent 2 mm thin-walled cyst at 12:00 position 7 cm distance from nipple. The left axilla shows a benign-appearing lymph node. Overall Assessment: Probably benign, BI-RAD 3 Management: Diagnostic Mammogram of the left breast in 6 months. Precautionary 6 month follow-up mammogram. A clinical breast exam by your physician is recommended on an annual basis and results should be correlated with mammographic findings. This exam should not preclude additional follow-up of suspicious palpable abnormalities. Results were given to the patient verbally at the time of exam. [facility], , 02/27/2024 9:28 AM. Electronically signed and approved by: Brian Peña M.D.
== END | disposition home or self-care (01) ==
LOC: RADMAMWWP 08:25
PROVIDERS: ATTEND Obstetrics & Gynecology
DX: R92.8 Other abnormal and inconclusive findings on diagnostic imaging of breast (principal); Z78.0 Asymptomatic menopausal state; Z80.3 Family history of malignant neoplasm of breast; R92.322 Mammographic fibroglandular density, left breast
CPT/HCPCS: 77061; 77065

== ENCOUNTER → 2024-08-28 | Outpatient (CLI) | payer MEDICARE ==
--- NOTE | 2024-08-28 07:57 | MM ---
Reason for Exam: Follow-up at short interval from prior study. Last screening mammogram was performed 6 month(s) ago. Patient History: Menarche at age 11. First Full-Term at age 26. Hysterectomy at age 39. Postmenopausal. Patient has history of breast feeding. Hormonal Contraceptives, from age 19 until age 34. 03/24/2016, Benign Core Biopsy on the right side. Maternal cousin had breast cancer. Maternal aunt had breast cancer. Risk Values: Ginna 5 year model risk: 2.2%. NCI Lifetime model risk: 8.2%. Prior Study Comparison: 02/14/2023 Bilateral MG 3D diag mammo w/cad [facility], [facility]. 02/16/2024 Bilateral MG 3D screening mammo w/cad, [facility]. 02/27/2024 Left MG 3D work up w/cad , [facility]. Tissue Density: Left: There are scattered areas of fibroglandular density. Findings: Analyzed By CAD. There is a 4.5 mm nodule at the 12:00 position left breast 6.5 cm from the nipple. Ultrasound is recommended. Overall Assessment: Incomplete: need additional imaging evaluation, BI-RAD 0 Management: Diagnostic Breast Ultrasound of the left breast. . Results were given to the patient verbally at the time of exam. Patient should continue monthly self-breast exams. A clinical breast exam by your physician is recommended on an annual basis. This exam should not preclude additional follow-up of suspicious palpable abnormalities. Note on Ginna scores and lifetime risk: 1. A Ginna score greater than 3% is considered moderate risk. If this is the case, consider specialist referral to assess eligibility for a risk reducing agent. 2. If overall lifetime risk for the development of breast cancer is 20% or higher, the patient may qualify for future screening with alternating mammogram and breast MRI. [facility], , 08/28/2024 7:54 AM. Electronically signed and approved by: James Rao M.D. Radiologis
--- NOTE | 2024-08-28 08:26 | USB ---
Reason for Exam: Follow-up at short interval from prior study. Patient History: Menarche at age 11. First Full-Term at age 26. Hysterectomy at age 39. Postmenopausal. Patient has history of breast feeding. Hormonal Contraceptives, from age 19 until age 34. 03/24/2016, Benign Core Biopsy on the right side. Maternal cousin had breast cancer. Maternal aunt had breast cancer. Risk Values: Ginna 5 year model risk: 2.2%. NCI Lifetime model risk: 8.2%. Technique: Method: Targeted. Prior Study Comparison: 02/14/2023 Bilateral MG 3D diag mammo w/cad [facility], [facility]. 02/16/2024 Bilateral MG 3D screening mammo w/cad, [facility]. 02/27/2024 Left MG 3D work up w/cad , [facility]. Findings: The upper section of the breast of the left breast, the axilla of the left breast and the retroareolar of the left breast were scanned. Small cystic lesion noted left breast at 12:00 7 cm from the nipple unchanged from prior study and measures approximately 2 mm versus 2 years previously. No solid masses seen. Overall Assessment: Benign, BI-RAD 2 Management: Screening Mammogram of both breasts in 1 year. A clinical breast exam by your physician is recommended on an annual basis and results should be correlated with mammographic findings. This exam should not preclude additional follow-up of suspicious palpable abnormalities. Results were given to the patient verbally at the time of exam. [facility], , 08/28/2024 8:18 AM. Electronically signed and approved by: James Rao M.D. Radiologis
== END | disposition home or self-care (01) ==
LOC: RADMAMWWP 07:32
PROVIDERS: ATTEND Obstetrics & Gynecology
DX: R92.8 Other abnormal and inconclusive findings on diagnostic imaging of breast (principal); R92.322 Mammographic fibroglandular density, left breast; Z78.0 Asymptomatic menopausal state; Z80.3 Family history of malignant neoplasm of breast; Z92.0 Personal history of contraception
CPT/HCPCS: 77061; 77065